=== PATIENT | female | born 1960 | race Caucasian/White ===

== ENCOUNTER → 2018-01-22 08:00 | Outpatient (CLI) | payer OTHER | END | disposition home or self-care (01) | LOC: D.MAMMO 08:00 | DX: Z12.31 Encounter for screening mammogram for malignant neoplasm of breast (principal) ==

== ENCOUNTER 2018-06-06 05:15 | Day surgery (SDC) | payer OTHER ==
[2018-06-05 09:12] LABS: BASOPHILS 0.2 % (0-2); EOSINOPHILS 3.5 % (0-7); HEMATOCRIT 39.1 % (36.0-48.0); LYMPHOCYTES 31.2 % (15-50); MCHC 35.8 g/dL (31.0-37.0); MCV 89.3 fL (80.0-100.0); MEAN PLATELET VOLUME 9.6 fL (7.4-10.4); MONOCYTES 6.1 % (2-11); PLATELET COUNT 197 10x3/uL (130-400); RBC 4.38 10x6/uL (4.00-5.40); RDW 11.9 % (11.5-14.5); WBC 5.5 10x3/uL (4.8-10.8)
[2018-06-05 09:29] LABS: APTT 41.6 SECONDS (22.8-39.4); INR 1.03 (0.85-1.17); PROTIME 13.1 SECONDS (11.6-15.0)
[~2018-06-06] VITALS: Ht 175.3 cm; Wt 63.5 kg
--- NOTE | ~2018-06-06 | OP ---
PATIENT NAME: SILVIA GLASGOW MEDICAL RECORD: [id number] :60 LOCATION:[facility] ADMISSION DATE: SURGEON: ELEONORA HARRY DPM DATE OF OPERATION: 06/06/2018 PREOPERATIVE DIAGNOSES: Arthritis and spurring, left first metatarsophalangeal joint. POSTOPERATIVE DIAGNOSES: Arthritis and spurring, left first metatarsophalangeal joint with inclusion of loose bone fragment, dorsal joint. PROCEDURE: Cheilectomy, left first metatarsophalangeal joint with subchondral drilling and fragment removal. ANESTHESIA: General with local infiltrate utilizing lidocaine and Marcaine plain 10 cc total around the first ray of the left foot. HEMOSTASIS: Left ankle tourniquet at 250 mmHg. OPERATIVE DETAILS: The patient was taken to the OR and placed on the operating table in a supine position. This was followed by induction of general anesthesia and infiltration of local anesthetic. The left extremity was then prepped and draped in the usual aseptic technique followed by exsanguination of extremity and inflation of tourniquet. A 15-blade was used to create a 3-4 cm linear incision over the dorsal aspect of the left first metatarsal extending just past the first MPJ. The incision was deepened down through subcutaneous tissue being sure to avoid all vital structures. A linear capsulotomy was made and the head of the first metatarsal was delivered as well as the base of proximal phalanx. It was noted there was a cartilaginous defect, which involved about half of the dorsal aspect of the first metatarsal as well as the dorsal half of the proximal phalanx of the hallux. There was also noted to be a loose osteochondral body, which was removed that was located centrally in the joint and there was a loose bone fragment surrounded by cartilage on the dorsal aspect of the joint superiorly, which was also removed. There was a lot of impinging capsulitis, which was resected. A sagittal saw was used to resect the enlargement on the dorsal aspect of the first metatarsal. There was noted to be a cyst on the lateral aspect of the first metatarsal head subchondrally. The bone was quite soft in that area. A rongeur was used to remove the soft bone. The wound was flushed copiously with saline solution. Subchondral drilling was then performed in the head of the first metatarsal where the cartilaginous defect was as well as the base of the proximal phalanx of the hallux. The wound was again flushed copiously. Excellent motion of the joint was achieved. The 2-0 Vicryl was then used to close the joint capsule, 4-0 Rapide was used to reapproximate the skin and 4-0 Rapide was used to close the skin in a subcuticular technique followed by Dermabond. Adaptic, 4 x 4 and Conform were used to dress the wound followed by Coban. Tourniquet was deflated. POSTOPERATIVE DETAILS: The patient tolerated the procedure well and left the OR with vital signs stable and vascular status at preoperative levels. The patient was transported to recovery per anesthesia in stable condition. TRANSINT:[id number] Voice Confirmation ID: [id number] DOCUMENT ID: [id number] OPERATIVE REPORT [id number] SILVIA GLASGOW, ELEONORA PHAN at 0833 CC: [id number] DICTATION DATE: 06/06/18 0749 [employer] ARCHITECT: 06/06/18 0801 [facility] 06/06/18 [facility] [address] [place] [address]
[~2018-06-06 05:15] MED LIST: ADVIL200 MG PO; CBD OIL PO; PROMETRIUM100 MG PO
[2018-06-06] MEDS ORDERED: PROGESTERONE (06:01)
[2018-06-06 06:04] VITALS: BP 117/74; Ht 175.3 cm; Wt 63.5 kg
== END 2018-06-06 09:20 | disposition home or self-care (01) ==
LOC: D.OPS 05:15 → D.PAN 07:00 → D.OPS 09:20
PROVIDERS: Anesthesiology
DX: M13.872 Other specified arthritis, left ankle and foot (principal); M77.8 Other enthesopathies, not elsewhere classified; Z01.812 Encounter for preprocedural laboratory examination